=== PATIENT | male | born 1955 | race Caucasian/White ===

== ENCOUNTER → 2017-12-16 | Outpatient (CLI) | payer OTHER ==
[~2017-12-16] MED LIST: ACET-66 PO; ASPI-1181 PO; CYAN10009 PO; DILT-36 PO; FURO40TA5 PO; GABA-531 PO; LISI-613 PO; METO100T14 PO; OMEP-272 PO; PENI500T2 PO; VITB1TAB PO; WARF4TAB72 PO
== END | disposition home or self-care (01) ==
LOC: SHCH 07:55
PROVIDERS: ATTEND Internal Medicine Cardiovascular Disease
DX: I42.0 Dilated cardiomyopathy (principal); I10 Essential (primary) hypertension
CPT/HCPCS: 93306

== ENCOUNTER → 2024-07-17 | Outpatient (CLI) | payer OTHER ==
[~2024-07-17] VITALS: Ht 182.9 cm; Wt 115.5 kg
[~2024-07-17] MED LIST changes: +ALLO300T2 PO; -ASPI-1181 PO; +ASPI-1443 PO; +CETI10TA87 PO; +CYAN-52 PO; -CYAN10009 PO; +EMPA10TA PO; +EZET10TA48 PO; +FLUT1BLS3 IH; +GABA-1405 PO; +HYDR-4068 PO; -LISI-613 PO; +LISI20TA24 PO; +LISI5TAB21 PO; +METO50TA18 PO; +MINO100C6 PO; +PHARMACY COMMUNICATION MISC SCH; +RIVA20TA PO
[2024-07-17 11:56] VITALS: BP 138/82; PULSE 85; RESP 18; TEMP 98.2
[2024-07-17 11:59] LABS: BASOPHILS # (AUTO) 0.09 K/uL (0.00-0.20); EOSINOPHILS # (AUTO) 0.22 K/uL (0.00-0.70); EOSINOPHILS % (AUTO) 2.4 % (0.0-8.0); HEMATOCRIT 48.4 % (42-54); IMMATURE GRANULOCYTE ABSOLUTE 0.03 K/uL (0-1); LYMPHOCYTES # (AUTO) 1.8 K/uL (1.0-4.8); LYMPHOCYTES % (AUTO) 18.9 % (21.0-51.0); MEAN CORPUSCULAR HEMOGLOBIN 27.6 pg (27.0-33.0); MEAN CORPUSCULAR VOLUME 86.1 fL (79-99); MONOCYTES # (AUTO) 0.5 K/uL (0.1-1.0); MONOCYTES % (AUTO) 5.4 % (3.0-13.0); NEUTROPHILS # (AUTO) 6.7 K/uL (1.8-7.7); PLATELET COUNT (AUTO) 257 K/uL (130-400); RED BLOOD CELL COUNT(AUTO) 5.62 MIL/uL (4.50-6.20); RED CELL DISTRIBUTION WIDTH 18.3 % (11.0-15.5); WHITE BLOOD COUNT (AUTO) 9.2 K/uL (4.8-10.8)
[2024-07-17 12:10] LABS: INR 1.02 (0.85-1.15)
[2024-07-17 12:11] LABS: PARTIAL THROMBOPLASTIN TIME 28.2 SEC (26.3-35.5)
[2024-07-17 12:23] LABS: CREATININE 1.2 mg/dL (0.5-1.3); POTASSIUM 5.5 mmol/L (3.5-5.1)
== END | disposition home or self-care (01) ==
LOC: DAH 10:00 → EDSTATUS 08-01 08:00
PROVIDERS: ATTEND Internal Medicine Cardiovascular Disease
DX: Z01.818 Encounter for other preprocedural examination (principal); Z45.02 Encounter for adjustment and management of automatic implantable cardiac defibrillator; I48.92 Unspecified atrial flutter; I48.21 Permanent atrial fibrillation; I42.0 Dilated cardiomyopathy
CPT/HCPCS: 36415; 80048; 85025; 85610; 85730; 93005

== ENCOUNTER 2024-07-19 09:24 | Observation (INO) | payer OTHER ==
[~2024-07-19] VITALS: Ht 182.9 cm; Wt 112.5 kg
[2024-07-19] VITALS (7 sets, daily range): BP systolic 104–118; BP diastolic 66–85; PULSE 70–72; RESP 16–19; TEMP 97.2–97.6; O2SAT 94
[~2024-07-19 09:24] MED LIST changes: -ACET-66 PO; -ASPI-1443 PO; -CYAN-52 PO; -DILT-36 PO; -FURO40TA5 PO; -GABA-531 PO; -LISI20TA24 PO; -METO100T14 PO; -MINO100C6 PO; -PENI500T2 PO; -PHARMACY COMMUNICATION MISC SCH; -VITB1TAB PO; -WARF4TAB72 PO
[2024-07-19 09:54] LABS: BASOPHILS # (AUTO) 0.09 K/uL (0.00-0.20); BASOPHILS % (AUTO) 1.1 % (0.0-5.0); EOSINOPHILS # (AUTO) 0.16 K/uL (0.00-0.70); HEMATOCRIT 48.2 % (42-54); IMMATURE GRANULOCYTE ABSOLUTE 0.02 K/uL (0-1); LYMPHOCYTES # (AUTO) 1.6 K/uL (1.0-4.8); LYMPHOCYTES % (AUTO) 19.8 % (21.0-51.0); MEAN CORPUSCULAR HEMOGLOBIN 27.1 pg (27.0-33.0); MEAN CORPUSCULAR VOLUME 84.9 fL (79-99); MONOCYTES # (AUTO) 0.5 K/uL (0.1-1.0); MONOCYTES % (AUTO) 5.7 % (3.0-13.0); NEUTROPHILS # (AUTO) 5.7 K/uL (1.8-7.7); NEUTROPHILS % (AUTO) 71.2 % (40.0-77.0); PLATELET COUNT (AUTO) 245 K/uL (130-400); RED BLOOD CELL COUNT(AUTO) 5.68 MIL/uL (4.50-6.20); RED CELL DISTRIBUTION WIDTH 17.7 % (11.0-15.5)
[2024-07-19 10:07] LABS: POTASSIUM 4.4 mmol/L (3.5-5.1)
[2024-07-19 10:10] LABS: INR 0.99 (0.85-1.15); PROTHROMBIN TIME 10.7 SEC (9.6-11.6)
[2024-07-19 10:12] LABS: PARTIAL THROMBOPLASTIN TIME 26.2 SEC (26.3-35.5)
[2024-07-19] MEDS ORDERED: MIDAZOLAM HCL 1 MG/ML 2ML VIAL ONE ×2 (10:20→10:52)
[2024-07-19] MEDS ORDERED: LIDOCAINE HCL 1% MDV 50ML VIAL ONE (10:20)
[2024-07-19] MEDS ORDERED: MEPERIDINE-PF 25 MG/ML SYG ONE ×3 (10:20→10:59)
[2024-07-19] MEDS ORDERED: BUPIvacaine/PF 0.25% 30ML VIAL IJ ONE (10:21)
[2024-07-19] MEDS ORDERED: ceFAZolin SODIUM 1 GM VIAL ONE (10:22)
[2024-07-19] MEDS ORDERED: IpraTROPium/alBUTERol SULFATE 3 ML SOLUTION IH PRN (10:30)
[2024-07-19] MEDS ORDERED: acetaMINOPHEN 500 MG TABLET PO PRN ×2 (10:30→12:00)
[2024-07-19] MEDS ORDERED: ondanSETRON 4MG INJ IVP PRN (10:30)
[2024-07-19 10:32] LABS: MAGNESIUM 1.8 mg/dL (1.80-2.40); THYROID STIMULATING HORMONE 0.65 uIU/mL (0.36-3.74)
[2024-07-19 10:36] LABS: B-TYPE NATRIURETIC PEPTIDE 66 pg/mL (0-100)
[2024-07-19] MEDS ORDERED: MAGNESIUM 2GM PREMIX 50ML 50 ML IV SCH (11:00)
[2024-07-19] MEDS ORDERED: HYDROcodone/APAP 5/325 1 TAB TABLET PO PRN (11:00)
[2024-07-19] MEDS ORDERED: INSULIN humuLIN R 100 UNIT/ML 3ML SQ SCH (11:30)
[2024-07-19] MEDS ORDERED: MINO100C6 PO (11:56)
[2024-07-19] MEDS ORDERED: acetaMINOPHEN WITH coDEINE 1 TAB TAB PO PRN (12:00)
[2024-07-19] MEDS ORDERED: FAMOTIDINE 20MG TAB PO SCH (21:00)
== END 2024-07-19 13:45 | disposition home or self-care (01) ==
LOC: EDH 09:24 → EDHIP 10:02
PROVIDERS: ADMIT Internal Medicine; ATTEND Internal Medicine
DX: I42.8 Other cardiomyopathies (principal); I48.21 Permanent atrial fibrillation; I11.0 Hypertensive heart disease with heart failure; I50.9 Heart failure, unspecified; E78.00 Pure hypercholesterolemia, unspecified; R31.9 Hematuria, unspecified; E66.9 Obesity, unspecified; J44.9 Chronic obstructive pulmonary disease, unspecified; E11.9 Type 2 diabetes mellitus without complications; I25.10 Atherosclerotic heart disease of native coronary artery without angina pectoris; Z45.02 Encounter for adjustment and management of automatic implantable cardiac defibrillator; Z68.33 Body mass index [BMI] 33.0-33.9, adult; Z86.2 Personal history of diseases of the blood and blood-forming organs and certain disorders involving the immune mechanism; Z88.1 Allergy status to other antibiotic agents; Z88.8 Allergy status to other drugs, medicaments and biological substances; Z79.899 Other long term (current) drug therapy; Z79.01 Long term (current) use of anticoagulants; Z96.652 Presence of left artificial knee joint; Z88.2 Allergy status to sulfonamides; Z87.891 Personal history of nicotine dependence
CPT/HCPCS: 33262; 99285; 84443; 82550; 83735; 84484; 80048; 83880; 85025; 85610; 85730; 36415; 71045; 93005; C1722; G0378; J0690; J0665; J2250 ×2; J2175 ×3; J3490; 99156; 99157